=== PATIENT | male | born 1995 | race Caucasian/White ===

== ENCOUNTER 2020-03-27 06:06 | Day surgery (SDC) | payer OTHER ==
[2020-03-27 07:06] LABS: PROTHROMBIN TIME 13.4 SEC (11.4-15.4)
[2020-03-27 07:07] LABS: PARTIAL THROMBOPLASTIN TIME 32.4 SEC (23.5-35.8)
[2020-03-27 07:15] LABS: HEMATOCRIT 40.9 % (37.9-51.0); HEMOGLOBIN 14.1 g/dL (13.5-17.0); MEAN CORPUSCULAR HEMOGLOBIN 29.4 pg (27.0-33.4); MEAN CORPUSCULAR HGB CONC 34.6 g/dL (32.0-36.0); MEAN CORPUSCULAR VOLUME 85 fl (80-97); PLATELET COUNT 298 10^3/uL (150-450); RED CELL DISTRIBUTION WIDTH 12.5 % (11.5-14.0); WHITE BLOOD COUNT 10.4 10^3/uL (4.0-10.5)
[2020-03-27 07:16] LABS: BLOOD UREA NITROGEN 14 mg/dL (7-20)
[2020-03-27] MEDS ORDERED: FENTANYL CITRATE INJ/PF 100 MCG/2 ML AMPUL ONE (07:59)
[2020-03-27] MEDS ORDERED: MIDAZOLAM 2 MG/2 ML INJ ONE (07:59)
--- NOTE | 2020-03-27 09:45 | RADIOLOGY REPORT (SQ) ---
EXAM DESCRIPTION: CT BIOPSY RENAL; CT NEEDLE PLACEMENT IMAGES COMPLETED DATE/TIME: 03/27/2020 9:15 am; 03/27/2020 9:16 am REASON FOR STUDY: PERSISTENT PROTEINURIA UNSPECIFIES/ HEMTURIA, UNSPECIFIED R80.1 PERSISTENT PROTEI ALEXIA, UNSPECIFIED R31.9 HEMATURIA, UNSPECIFIED COMPARISON: None. RADIATION DOSE: CT Rad equipment meets quality standard of care and radiation dose reduction techniq ues were employed. CTDIvol: 4.0 - 6.2 mGy. DLP: 320 mGy-cm. mGy. LIMITATIONS: None. PROCEDURE: After obtaining informed consent and explaining the risks and benefits of conscious sedat ion,the patient agreed to the procedure. Preliminary CT scanning to localize the biopsy site was performed. A site was marked on the left kid ta and time out was performed. Procedure was performed using CT fluoroscopy. Total exposure time: [address] fluoroscopic images were obtained and saved to PACS. IV conscious sedation was administered and physician direction by the registered nurse using 2.0 mill igrams of Versed and 100 micrograms of fentanyl. Physiologic monitoring was provided before, during, and after sedation. The total sedation time was 30 minutes. Documentation face to face time, the performing proceduralist, spent monitoring the patient: 20 minut es. After sterile skin prep with ChloraPrep, local lidocaine for skin and deep tissue anesthesia, the lef t kidney was localized. A coaxial 18 gauge needle was used to obtain 4 cores of tissue from the left kidney. The biopsy tract was embolized with Gelfoam. All CT scanners at this facility use dose modulation, iterative reconstruction, and/or weight based d osing when appropriate to reduce radiation dose to as low as reasonably achievable (ALARA). [facility]: Dose Right [facility]: CareDose [facility]: Dose Right [facility]: Teradose 4D [facility]: [employer] FINDINGS: There were no immediate complications. Specimen was carried to cytology on sterile saline gauze and submitted to the cnc milling machinist for processing. Pathology is pending at the time of dict ation. IMPRESSION: CT GUIDED LEFT KIDNEY CORTICAL BIOPSY. COMMENT: Patient medication list reviewed:Yes- Quality ID# [id number]:Eligible professional attests to docu menting in the medical record they obtained, updated, or reviewed the patient's current medications.. TECHNICAL DOCUMENTATION: JOB ID: [id number] Quality ID #[id number]: Final reports for procedures using fluoroscopy that document radiation exposure kerry ayana, or exposure time and number of fluorographic images (if radiation exposure indices are not avail able) Quality ID # [id number]: Final reports with documentation of one or more dose reduction techniques (e.g., Au tomated exposure control, adjustment of the mA and/or kV according to patient size, use of iterative reconstruction technique) 2010 [employer]- All Rights Reserved Reading location - IP/workstation name: [email or web address]
--- NOTE | 2020-03-27 09:45 | RADIOLOGY REPORT (SQ) ---
EXAM DESCRIPTION: CT BIOPSY RENAL; CT NEEDLE PLACEMENT IMAGES COMPLETED DATE/TIME: 03/27/2020 9:15 am; 03/27/2020 9:16 am REASON FOR STUDY: PERSISTENT PROTEINURIA UNSPECIFIES/ HEMTURIA, UNSPECIFIED R80.1 PERSISTENT PROTEI ALEXIA, UNSPECIFIED R31.9 HEMATURIA, UNSPECIFIED COMPARISON: None. RADIATION DOSE: CT Rad equipment meets quality standard of care and radiation dose reduction techniq ues were employed. CTDIvol: 4.0 - 6.2 mGy. DLP: 320 mGy-cm. mGy. LIMITATIONS: None. PROCEDURE: After obtaining informed consent and explaining the risks and benefits of conscious sedat ion,the patient agreed to the procedure. Preliminary CT scanning to localize the biopsy site was performed. A site was marked on the left kid ta and time out was performed. Procedure was performed using CT fluoroscopy. Total exposure time: [address] fluoroscopic images were obtained and saved to PACS. IV conscious sedation was administered and physician direction by the registered nurse using 2.0 mill igrams of Versed and 100 micrograms of fentanyl. Physiologic monitoring was provided before, during, and after sedation. The total sedation time was 30 minutes. Documentation face to face time, the performing proceduralist, spent monitoring the patient: 20 minut es. After sterile skin prep with ChloraPrep, local lidocaine for skin and deep tissue anesthesia, the lef t kidney was localized. A coaxial 18 gauge needle was used to obtain 4 cores of tissue from the left kidney. The biopsy tract was embolized with Gelfoam. All CT scanners at this facility use dose modulation, iterative reconstruction, and/or weight based d osing when appropriate to reduce radiation dose to as low as reasonably achievable (ALARA). [facility]: Dose Right [facility]: CareDose [facility]: Dose Right [facility]: Teradose 4D [facility]: [employer] FINDINGS: There were no immediate complications. Specimen was carried to cytology on sterile saline gauze and submitted to the engineering job titles for processing. Pathology is pending at the time of dict ation. IMPRESSION: CT GUIDED LEFT KIDNEY CORTICAL BIOPSY. COMMENT: Patient medication list reviewed:Yes- Quality ID# [id number]:Eligible professional attests to docu menting in the medical record they obtained, updated, or reviewed the patient's current medications.. TECHNICAL DOCUMENTATION: JOB ID: [id number] Quality ID #[id number]: Final reports for procedures using fluoroscopy that document radiation exposure kerry ayana, or exposure time and number of fluorographic images (if radiation exposure indices are not avail able) Quality ID # [id number]: Final reports with documentation of one or more dose reduction techniques (e.g., Au tomated exposure control, adjustment of the mA and/or kV according to patient size, use of iterative reconstruction technique) 2010 [employer]- All Rights Reserved Reading location - IP/workstation name: [email or web address]
[2020-03-27 11:06] VITALS: BP 110/68
== END 2020-03-27 11:15 | disposition home or self-care (01) ==
LOC: RAD 06:06
PROVIDERS: ATTEND Internal Medicine Nephrology
DX: R80.1 Persistent proteinuria, unspecified (principal); R31.9 Hematuria, unspecified
CPT/HCPCS: 36415; 84520; 82565; 85027; 85610; 85730; 88346 ×2; 88348 ×2; 88313 ×2; 77012; 50200; J2250; J3010